=== PATIENT | female | born 1975 | race African-American/Black ===

== ENCOUNTER 2024-02-07 16:09 | Emergency (ER) | payer MEDICAID, OTHER ==
[~2024-02-07] VITALS: Ht 165.1 cm; Wt 60.0 kg
[2024-02-07 16:16] VITALS: O2SAT 99
[2024-02-07 17:36] LABS: BASOPHILS % 0.6 % (0.0-2.0); EOSINOPHILS % 1.7 % (0.0-5.0); HEMOGLOBIN. 12.4 g/dL (12.0-16.0); LYMPHOCYTES % 44.2 % (20.0-50.0); MEAN CORPUSCULAR HEMOGLOBIN 27.3 pg (28.0-32.0); MEAN CORPUSCULAR HGB CONC 31.7 g/dL (31.0-37.0); MEAN PLATELET VOLUME 8.8 fl (7.4-10.4); MONOCYTES % 6.8 % (2.0-8.0); NEUTROPHILS % 46.7 % (40.0-76.0); PLATELET 266 x1000/uL (130-400); RED BLOOD CELL COUNT 4.53 mill/uL (4.2-5.4); RED CELL DISTRIBUTION WIDTH 13.8 % (11.6-14.6); WHITE BLOOD COUNT 5.6 x1000/uL (4.5-11.0)
[2024-02-07 17:39] LABS: CHLORIDE 106 mEq/L (98-107); POTASSIUM 3.9 mEq/L (3.5-5.1); SODIUM 137 mEq/L (136-145)
[2024-02-07 17:40] LABS: CARBON DIOXIDE 25 mEq/L (21-32)
[2024-02-07 17:41] LABS: CALCIUM 9.7 mg/dL (8.7-10.4)
[2024-02-07 17:45] LABS: CREATININE 0.8 mg/dL (0.6-1.0); GLUCOSE 83 mg/dL (70-105); UREA NITROGEN BLOOD 8 mg/dL (9-23)
[2024-02-07] MEDS ORDERED: VITA250012 MT (18:26)
[2024-02-07 18:30] VITALS: BP 124/77; PULSE 74; RESP 18; TEMP 98.5
== END 2024-02-07 18:30 | disposition home or self-care (01) ==
LOC: ER 16:09
DX: R21 Rash and other nonspecific skin eruption (principal); N95.1 Menopausal and female climacteric states; J45.909 Unspecified asthma, uncomplicated
CPT/HCPCS: 36415; 80048; 85025; 99283

== ENCOUNTER 2025-03-26 08:24 | Emergency (ER) | payer SELFPAY ==
[~2025-03-26] VITALS: Ht 165.1 cm; Wt 60.0 kg
[~2025-03-26 08:24] MED LIST: VITA250012 MT
[2025-03-26 08:40] VITALS: O2SAT 99
[2025-03-26 09:19] VITALS: BP 119/68; PULSE 62; RESP 17; TEMP 36.7; O2SAT 99
== END 2025-03-26 09:30 | disposition home or self-care (01) ==
LOC: ER 08:24
DX: N63.10 Unspecified lump in the right breast, unspecified quadrant (principal); J45.909 Unspecified asthma, uncomplicated
CPT/HCPCS: 99282